=== PATIENT | female | born 1930 | race Caucasian/White ===

== ENCOUNTER 2016-03-13 07:43 | Day surgery (SDC) | payer MEDICARE, MEDICAID ==
[~2016-03-13] VITALS: Ht 162.6 cm; Wt 86.8 kg
[2016-03-13] VITALS (7 sets, daily range): BP systolic 116–141; BP diastolic 48–71; PULSE 58–693; TEMP 97.6–97.9
[~2016-03-13 07:43] MED LIST: ALDACTONE 25MG25 M1 PO; ATIVAN 0.50.5 MG/TAB PO; CELEXA 20MG20 MG/TAB PO; CLARITIN 1010 MG/TAB PO; COLACE 100100 MG/CAP PO; COZAAR 50MG50 MG/TAB PO; DULCOLAX S10 MG/SUPP RC; FLEET ENEM1 BOT/133 RC; GLUCOPHAGE XR500 M1 PO; GLUCOTROL XL2.5 MG PO; HCTZ 25MG TAB25 MG PO; IPRATROPIUM BROM3 M1 IH; LANTUS100 U/ML SC; LEVAQUIN 5500 MG/TA1 PO; LIDODERM PATCH TP; LOPRESSOR 550 MG/TAB PO; MAALOX 225 MG/150 ML PO; MILK OF MA400 MG/5 M PO; MIRALAX PA17 GM/Dose PO; MONISTAT 7100 MG VG; MULTIPLE VITAMI1 CAP PO; MYLANTA 150 ML150 M1 PO; NEURONTIN300 MG/CAP PO; NORCO 325 MG-51 TAB PO; NORVASC 5MG5 MG/TAB PO; PLAVIX 75MG TAB75 MG PO; RELAFEN 50500 MG/TAB PO; SENNA LAX8.6 MG PO; TYLENOL 325MG325 MG PO; TYLENOL SU650 MG/SUP RC; VITAMIN C500 MG PO; ZOCOR 20MG20 MG PO; ZYRTEC5 MG PO
[2016-03-13] MEDS ORDERED: PLAVIX 75MG TAB75 MG PO (09:37)
[2016-03-13] MEDS ORDERED: RELAFEN 50500 MG/TAB PO (09:38)
[2016-03-13] MEDS ORDERED: PERCOCET 325 MG1 TA2 PO (10:17)
== END 2016-03-13 13:00 | disposition home or self-care (01) ==
LOC: SDCO 07:43
DX: C51.0 Malignant neoplasm of labium majus (principal); C51.9 Malignant neoplasm of vulva, unspecified; I69.359 Hemiplegia and hemiparesis following cerebral infarction affecting unspecified side; I69.991 Dysphagia following unspecified cerebrovascular disease; I10 Essential (primary) hypertension; E11.9 Type 2 diabetes mellitus without complications; K21.9 Gastro-esophageal reflux disease without esophagitis; E78.5 Hyperlipidemia, unspecified; Z87.891 Personal history of nicotine dependence; Z80.0 Family history of malignant neoplasm of digestive organs
CPT/HCPCS: J2405; J2704; J2765; J3010; J7030

== ENCOUNTER 2017-01-03 10:43 | Emergency (ER) | payer MEDICARE, MEDICAID ==
[~2017-01-03] VITALS: Ht 157.5 cm; Wt 84.5 kg
[~2017-01-03 10:43] MED LIST changes: +PERCOCET 325 MG1 TA2 PO
[2017-01-03 10:45] VITALS: TEMP 99
[2017-01-03 11:16] LABS: MEAN CELL VOLUME 91 fl (80.0-100.0); MEAN CORPUSCULAR HGB CONC 33 g/dl (33.0-37.0); MEAN PLATELET VOLUME 10.3 fl (7.4-10.4); PLATELET COUNT 405 K/mm3 (130-400); RED BLOOD COUNT 3.27 M/mm3 (4.10-5.30); WHITE BLOOD COUNT 13.3 K/mm3 (4.8-10.8)
[2017-01-03 11:22] LABS: ADD PATHOLOGY DIFF REVIEW NO; HEMATOCRIT 29.6 % (37.0-47.0); HEMOGLOBIN 9.8 g/dl (12.5-16.0); MEAN CORPUSCULAR HEMOGLOBIN 30 pg (27.0-31.0)
[2017-01-03 11:27] LABS: INR 1.2 (0.8-3.0); PROTHROMBIN TIME 13.3 SECONDS (9.7-12.8)
[2017-01-03 11:30] LABS: ADJUSTED CALCIUM 12.4 mg/dL (8.4-10.2); ALANINE AMINOTRANSFERASE 38 U/L (9-52); ALBUMIN 3.7 gm/dL (3.5-5.0); ALKALINE PHOSPHATASE 89 U/L (50-136); ANION GAP 9 mmol/L (7-16); BILIRUBIN,TOTAL 0.5 mg/dL (0.0-1.0); BLOOD UREA NITROGEN 35 mg/dL (7-17); CALCIUM 12.2 mg/dL (8.4-10.2); CARBON DIOXIDE 29 mmol/L (22-30); CHLORIDE 101 mmol/L (98-107); CREATININE, serum 0.89 mg/dL (0.52-1.25); GLUCOSE 165 mg/dL (74-106); PARTIAL THROMBOPLASTIN TIME 26.6 SECONDS (26.0-37.0); POTASSIUM 4.4 mmol/L (3.4-5.0); SODIUM 140 mmol/L (137-145); TOTAL PROTEIN 7.1 gm/dL (6.4-8.2)
[2017-01-03 11:46] LABS: BAND 6 % (0-10); EOSINOPHIL 3 % (0-4); LYMPHOCYTE 16 % (20.0-51.0); NEUTROPHILS 70 % (42.0-75.2); PLATELET ESTIMATE NORMAL (NORMAL); TOTAL CELLS COUNTED 100
[2017-01-03 11:52] LABS: TROPONIN-I < 0.012 ng/mL (0.000-0.034)
[2017-01-03 11:56] LABS: COLLECTION METHOD CATHETER
[2017-01-03 12:07] LABS: MUCOUS Present /lpf; PH 5 (5-8); URINE APPEARANCE Hazy; URINE BACTERIA None Seen /hpf; URINE BILIRUBIN Negative (NEGATIVE); URINE BLOOD 1+ (NEGATIVE); URINE COLOR Yellow; URINE GLUCOSE Negative (NEGATIVE); URINE KETONE Negative (NEGATIVE); URINE LEUKOCYTE ESTERASE Negative (NEGATIVE); URINE PROTEIN(semi-quant) Negative (NEGATIVE); URINE UROBILINOGEN Negative (NEGATIVE); URINE WBC 0-2 /hpf
[2017-01-03 14:00] VITALS: BP 148/74; PULSE 82
== END 2017-01-03 14:23 | disposition home or self-care (01) ==
LOC: COL.ER 10:43
PROVIDERS: Emergency Medicine
DX: I69.992 Facial weakness following unspecified cerebrovascular disease (principal); I69.928 Other speech and language deficits following unspecified cerebrovascular disease; I69.951 Hemiplegia and hemiparesis following unspecified cerebrovascular disease affecting right dominant side; E83.52 Hypercalcemia; I10 Essential (primary) hypertension; E78.5 Hyperlipidemia, unspecified; K21.9 Gastro-esophageal reflux disease without esophagitis; Z79.4 Long term (current) use of insulin; Z79.02 Long term (current) use of antithrombotics/antiplatelets
CPT/HCPCS: J7030